=== PATIENT | male | born 1945 | race Caucasian/White ===

== ENCOUNTER 2024-12-11 18:04 | Inpatient (IN) | payer MEDICARE, OTHER, SELFPAY ==
[2024-12-11] VITALS (12 sets, daily range): BP systolic 72–124; BP diastolic 49–70; BMI 20.7
[2024-12-11 16:21] LABS: Hematocrit 45.1 % (39.0-52.0); Hemoglobin 14.7 g/dL (13.0-18.0); Mean Corp Hgb Conc. 32.6 g/dL (33.0-37.0); Mean Corpuscular Volume 85.7 fL (80.0-94.0); Nucleated Red Blood Cells % 0.1 % (-); Platelet Count 240 10^3/uL (130-400); Red Cell Dist. Width 13.7 % (11.5-14.5)
--- NOTE | 2024-12-11 16:30 | ED.GENMED ---
History of Present Illness
General
Chief Complaint: Breathing Problem
Source: patient
Exam Limitations: none
Time Seen by Provider: 12/11/24 16:25
History of Present Illness
History of Present Illness:
See MDM
Past History
Past History
ED Past Medical History: IDDM
ED Past Surgical History: None
Social History
Tobacco: Non-smoker
Alcohol: None
Phy Exam
Physical Exam
Physical Exam:
See MDM
Scores
Heart Failure Risk
Heart Failure Risk Score: Not Applicable
Course
Orders/Labs/Results
Orders:
Orders
12/11/24 16:02
EKG [Electrocardiogram (*1)] Urgent
Reason for Study: Shortness of Breath
12/11/24 16:03
EKG- Treatment ONCE
12/11/24 16:12
B-Hydroxybutyrate Urgent
Comment: ADD ON
Complete Blood Count/With Diff Urgent
Comprehensive Metabolic Panel Urgent
Troponin I Urgent
12/11/24 16:31
0.9% Sodium Chloride 1000 ml [Nss] 1,000 ml IV BOLUS
12/11/24 16:33
Urinalysis Reflex To Culture Urgent
12/11/24 16:46
Add On- LAB Urgent
Tests Added?: B-hydroxybuterate
12/11/24 16:50
Aspirin Chewable [Low Strength Aspirin] 324 mg PO NOW STA
12/11/24 17:03
Bedside Glucose- Treatment Q1H
IV Insert/Care/Rem.- Treatment PRN
Insulin Human Regular [Novolin R] 7 units IV NOW STA
NSS 1000mL Bolus over 1 hr 0.9% Sodium Chloride 1000 ml [Nss] 1,000 ml IV BOLUS
NSS 1000mL Bolus over 1 hr 0.9% Sodium Chloride 1000 ml [Nss] 1,000 ml IV BOLUS
12/11/24 17:15
Basic Metabolic Panel Q2H
12/11/24 19:15
Basic Metabolic Panel Q2H
12/11/24 21:15
Basic Metabolic Panel Q2H
Abnormal Lab Results
12/11/24
16:12
WBC 18.5 H 10^3/uL
(4.8-10.8)
MCHC 32.6 L g/dL
(33.0-37.0)
MPV 12.1 H fL
(7.4-10.4)
Abs Immat Gran (auto) 0.1 H 10^3/uL
(0-0.05)
Absolute Neuts (auto) 13.4 H 10^3/uL
(1.4-6.5)
Absolute Lymphs (auto) 3.9 H 10^3/uL
(1.2-3.4)
Absolute Monos (auto) 0.9 H 10^3/uL
(0.1-0.6)
Immature Gran % 0.6 H %
(0-0.5)
Sodium 126 L mmol/L
(135-145)
Chloride 95 L mmol/L
(98-107)
Carbon Dioxide 21 L mmol/L
(22-30)
BUN 53 H mg/dl
(9-20)
Creatinine 2.8 H mg/dL
(0.7-1.3)
Glucose 986 H* mg/dl
(70-99)
Total Bilirubin 2.7 H mg/dl
(0.2-1.3)
ALT 87 H U/L
(0-50)
Alkaline Phosphatase 148 H U/L
(38-126)
Troponin I 0.058 H* ng/ml
12/11/24 16:12
12/11/24 16:12
Vital Signs
Initial and Last Documented VS:
Initial Vital Signs
Temp Pulse Resp BP
97.6 F 88 20 72/50
12/11/24 15:53 12/11/24 15:53 12/11/24 15:53 12/11/24 15:53
Last Documented Vital Signs
Temp Pulse Resp BP
97.6 F 88 20 72/50
12/11/24 15:53 12/11/24 15:53 12/11/24 15:53 12/11/24 15:53
MDM/Problems Addressed
Differential Diagnosis Includes:
Note:
CHIEF COMPLAINT(S)
Generalized weakness and fatigue.
HISTORY OF PRESENT ILLNESS
The patient is an 79-year-old male with a recent history of pneumonia, which has resolved following treatment. However, the patient continues to experience generalized weakness and fatigue. He has a history of diabetes mellitus and is experiencing
increased urination, likely exacerbated by the recent use of steroids. The patient denies any current shortness of breath. He reports drinking a substantial amount of fluids, possibly due to feeling dehydrated. He also mentioned having a history of
sinus infections and chest infections over the years.
CHRONIC MEDICAL CONDITIONS SIGNIFICANTLY AFFECTING CARE
Chronic conditions affecting care: Diabetes mellitus.
PHYSICAL EXAM
General: Alert, no acute distress.
Skin: Warm, dry.
Head: Normocephalic, atraumatic
Neck: Appears supple, trachea midline.
Eyes, Ears, Nose, Mouth, and Throat: Very dry mucous membranes
Cardiovascular: No signs of cyanosis. Regular rate and rhythm
Respiratory: Respirations are non-labored. Lungs clear
Abdomen: Non-distended
Musculoskeletal: No deformities
Neurological: No focal neurological deficit observed.
Psychiatric: Cooperative, appropriate mood and affect.
PLAN
The plan is to administer intravenous fluids to address the low blood pressure and dehydration.
DIFFERENTIAL DIAGNOSIS
The Differential Diagnosis includes, in no particular order and is not limited to:
- Dehydration
- Hyperglycemia due to uncontrolled diabetes
- Post-treatment fatigue from recent pneumonia
- Electrolyte imbalance
- Anemia
- Cardiovascular deconditioning
- Medication side effects
- Chronic kidney disease
- Adrenal insufficiency
- Infection recurrence
DISPOSITION
Observation with intravenous fluid administration.
MEDICATION RECONCILIATION
- Clopidogrel.
MEDICAL DECISION MAKING
- Complexity of Data Reviewed: Chronic conditions affecting care: Diabetes mellitus. Differential diagnosis includes dehydration, hyperglycemia, post-treatment fatigue, etc.
- Data:
Category 1: No external records reviewed during this encounter.
Category 2: No additional history obtained from external sources.
Category 3: No discussion of management with other providers documented.
-Risk:
Consideration of Admission/Observation: Escalation of care including admission/observation was considered given the complexity and risk of the patients presenting complaint, exam findings, and/or their underlying comorbidities. However, ultimately I
feel the patient is safe for outpatient management with close follow up. Reasoning: Work-up reassuring, does not reveal any acute life/organ threatening processes, patients symptoms well controlled upon reevaluation, reexamination is reassuring,
vitals are stable, patient agreeable with discharge, reliable for follow-up.
DIAGNOSIS
- Generalized weakness (R53.1)
- Dehydration (E86.0)
- hyperglycemia
SUMMARY OF ENCOUNTER
79-year-old male presented for generalized weakness. He had recently completed a course of antibiotics and steroids for pneumonia. The patient denies current respiratory symptoms, and his lung sounds are clear on examination. He is experiencing
profound dehydration and significant hyperglycemia, which is likely steroid-induced. His anion gap is 10.
DISPOSITION
Admit to the hospital service.
ASSESSMENT
The patient has generalized weakness secondary to dehydration and significant hyperglycemia, likely due to recent steroid use.
EMERGENCY TREATMENTS ADMINISTERED
Initiation of intravenous fluids and an insulin drip due to profound hyperglycemia.
PLAN
The patient will be admitted to the hospital service for management of dehydration and steroid-induced hyperglycemia. An insulin drip will be administered, and intravenous fluids will continue.
INDEPENDENT REVIEW OF LABS AND INTERPRETATION OF TESTS
My independent review of the patients labs shows significant hyperglycemia and an anion gap of 10.
MEDICAL DECISION MAKING
1. Number and Complexity of Problems Addressed: Chronic conditions affecting care: Diabetes mellitus. Differential diagnosis includes dehydration, hyperglycemia, post-treatment fatigue, electrolyte imbalance, anemia, cardiovascular deconditioning,
medication side effects, chronic kidney disease, adrenal insufficiency, and infection recurrence.
2. Data:
-Category 1: My independent interpretation of labs revealed significant hyperglycemia and an anion gap of 10.
3. Risk: Admission was chosen due to the complexity and risk of the patients presenting complaints, comorbidities, and requirement for continuous monitoring and treatment adjustments.
DIAGNOSIS
- Generalized weakness (R53.1)
- Dehydration (E86.0)
- hyperglycemia
*Pulse Oximetry
Patient hypoxic: no
*Critical Care Note
Total Time (30-74mins, 75-104mins- exclusive of procedures): 33 min
comment:
The high probability of a clinically significant, sudden or life threatening deterioration of the endocrine/cardiovascular system(s) required my full and direct attention, intervention and personal management. The aggregate critical care time was 33
minutes. This time is in addition to time spent performing reported procedures but includes the following:
[x] Data Review and interpretation
[x] Patient assessment and monitoring of vital signs
[x] Documentation
[x] Medication orders and management
ED Attending Note
-
Portions of this chart may have been created with voice recognition software.� Occasional wrong word or��sound alike� substitutions may have occurred due to the inherent limitations of voice recognition software.
Discharge Plan
Departure
Patient Disposition: Admit
Date of Disposition: 12/11/24
Time of Disposition: 17:02
Admit to: Med/Surg
Presentation/result/management discussed w/ accepting MD/DO: Hospitalist
Discharge Problem:
Acute hyperglycemia, ARSENIO (acute kidney injury)
Referrals:
NONE,* [Family Provider, Internal Medicine]
Interventions
Interventions:
*Risk Screen - Suicide Last Done: 12/11/24 15:53
*General Assessment Last Done: 12/11/24 15:53
*ED COVID-19 Vaccine History Last Done: 12/11/24 15:53
*ED Influenza Vaccine History Last Done: 12/11/24 15:53
Discharge Date and Time
Print Language: SWEDISH
[2024-12-11 16:32] LABS: ALT (SGPT) 87 U/L (0-50); AST (SGOT) 50 U/L (17-59); Albumin 3.8 g/dl (3.5-5.0); Alkaline Phosphatase 148 U/L (38-126); Blood Urea Nitrogen 53 mg/dl (9-20); Calcium 9.6 mg/dl (8.4-10.2); Carbon Dioxide 21 mmol/L (22-30); Chloride 95 mmol/L (98-107); Potassium 3.7 mmol/L (3.5-5.1); Sodium 126 mmol/L (135-145); Total Protein 6.4 g/dl (6.3-8.2); eGFR 22.12
[2024-12-11 16:43] LABS: Glucose 986 mg/dl (70-99)
[2024-12-11 16:44] LABS: Troponin I 0.058 ng/ml
--- NOTE | 2024-12-11 17:03 | HPS.HSE ---
Family Physician
-
Family Physician: * NONE
Chief Complaint
-
fatigue
History of Present Illness
79-year-old male with PMH for neuropathy, type 2 DM, NC presented to us with fatigue and weakness for past few days. Patient stated increased urination. Patient stated very poor appetite. Patient stated for past few days he was just taking
strawberry Jell-O, water and Coke. Patient just finished a course of antibiotics and steroids for pneumonia on Saturday. Patient denied any headache, dizzy or syncope. Patient denied any fever, chills, cough, congestion, chest pain or short of
breath. Patient denied any abdominal pain, nausea, vomiting or diarrhea. Patient denied dysuria hematuria.
Upon arrival he was noted hypotensive for which he was requiring fluids. Patient was also noted to have elevated blood sugar in 900s. He was noted to have elevated Trope. Patient received a dose of normal saline, aspirin and insulin 7 units.
Admitting for further management
Medical History
Past Medical History
Past Medical History: Reports Other
Additional Past Medical History:
Peripheral neuropathy, diabetes, NC
Past Surgical History: Reports Other
Additional Past Surgical History:
Coronary artery bypass graft x 4 vessels, defibrillator
Social History
Tobacco: Non-smoker
Alcohol: None
Drug: None
Personal:
Living: With Family
Family History
Family History: Not pertinent
Allergies / Home Medications
Allergies reflects when Allergies were last updated in [facility].
Home Medications with original date entered in [facility]
Allergy/Medication List:
Allergies
Allergy/AdvReac Type Severity Reaction Status Date / Time
Sulfa (Sulfonamide Allergy rash, Verified 12/11/24 17:30
Antibiotics) fever,
redness
Review of Systems
-
Constitutional: Reports Fatigue
EENT: Reports No Symptoms
Respiratory: Reports No Symptoms
Cardiac: Reports No Symptoms
Abdomen/GI: Reports No Symptoms
: Reports No Symptoms
Musculoskeletal: Reports No Symptoms
Skin: Reports No Symptoms
Neurological: Reports Weakness
Endocrine: Reports No Symptoms
Hematologic/Lymphatic: Reports No Symptoms
Psych: Reports No Symptoms
Physical Exam
Vital Signs
Vital Signs
Temp Pulse Resp BP
97.6 F 88 20 72/50
12/11/24 15:53 12/11/24 15:53 12/11/24 15:53 12/11/24 15:53
Physical Exam
General: Well Developed, Well Nourished and No Apparent Distress
HEENT: NormoCephalic, Moist mucous membranes and Atraumatic
Respiratory: Clear
Cardiac: S1/S2 and Regular Rhythm; No Murmur or Rub
GI: Soft, Non Tender, Non Distended and Normal Bowel Sounds; No Organomegaly
Rectal: Deferred by Provider
Musculoskeletal: No Clubbing, No Cyanosis and No Edema
Skin: No Rash
Neuro: AO x 3 and Nonfocal/grossly intact
Psych: Calm
Laboratory Results
-
12/11/24 16:12
12/11/24 16:12
Laboratory Results
Total Bilirubin 2.7 mg/dl (0.2-1.3) H 12/11/24 16:12
AST 50 U/L (17-59) 12/11/24 16:12
ALT 87 U/L (0-50) H 12/11/24 16:12
Alkaline Phosphatase 148 U/L (38-126) H 12/11/24 16:12
Troponin I 0.058 ng/ml H* 12/11/24 16:12
Data Reviewed
-
Lab Data: Labs Reviewed by me
Impression/Plan
-
#DKA likely from recent steroids
-blood sugar elevated in 900's
-AG 31 with corrected sodium, B hydroxy pending
-insulin drip continued
-DM SITE INTERPRETER consulted
- Hold hold Lantus and glipizide and jardiance
# Leukocytosis likely from steroids
#recent pneumonia
- WBCs 18.5, patient is afebrile
- Continue to monitor
-refused the chest x ray to check the resolution of pneumonia.
# Pseudohyponatremia in setting of hyperglycemia
- Corrected sodium is 147
-fluids continued
-monitor BMP
# Acute kidney injury likely chronic likely hypovolemic
- Creatinine 2.8
-Fluids continued
- Continue to monitor BMP
# Elevated Trope rule out NSTEMI
- Patient denies chest pain
- Trend Trope
- EKG with atrial sensed ventricular paced rhythm
- Cardiology consulted
# Hypovolemic hypotension
Blood pressure low in 70s
-Continue fluids
-Continue to monitor the blood pressure
# Hypothyroidism
-Levothyroxine continued
# History of NC
# Coronary artery disease status post coronary artery bypass graft
# Defibrillator
-Metoprolol, aspirin, Plavix continued
# Essential hypertension
-Patient was noted hypotensive upon arrival
-Will hold valsartan
#Hyperlipidemia
-Atorvastatin continued
# DVT prophylaxis
- Heparin subcu
# CODE STATUS
- Full code
--- NOTE | 2024-12-11 17:08 | W.PN.UPDATE ---
Addendum entered and electronically signed by Yash Russ MD 12/11/24 18:30:
Case : Hospitalist dw DCA Card:
Precipitating etiolgy of DKA is uncertain concern for silent Card event
Current TPNI is insignificant per Card
- thus hold off Card consult for now
- Trend TPNI - if become significant, will consult DCA card
Addendum entered and electronically signed by Yash Russ MD 12/11/24 18:11:
Laboratory Tests
12/11/24
16:12
B-Hydroxybutyrate 1.20 H
consistent with DKA with Hi AG
Original Note:
Update Note
Progress Note Update
This note serves as an addendum to the H&P by rigging engineer OSMANI�
Deonna ALEKSANDR�
HPI
79M Recently Dxed with PNA as of 12/01/24. S/P PO ABx and PO Steroids.
- seen at ER pw weakness and fatigue
- No Pneumonic symptoms
- BP was low in triage
- Report SBP was 70s for weeks
PHX: CAD, AZ, CABG, AICD, IDDM
Relevant VS
Temp Pulse Resp BP
97.6 F 88 20 72/50
12/11/24 15:53 12/11/24 15:53 12/11/24 15:53 12/11/24 15:53
PE
Gen:thin, appropriate
HEENT:anicteric, dry lips and OM
Neck: supple
Lungs: CTA
Cor: RRR S1 S2
Abdomen:�soft NT NG NRT
CATALYTIC CASE OPERATOR: AAO3
MS:no edema
Relevant Data
12/11/24
16:12
WBC 18.5 H
Hgb 14.7
MCV 85.7
Plt Count 240
12/11/24
16:12
Sodium 126 L =140 if corrected Na for BG 986
Potassium 3.7
Chloride 95 L
Carbon Dioxide 21 L
BUN 53 H
Creatinine 2.8 H
eGFR 22.12
Glucose 986 H*
Total Bilirubin 2.7 H
AST 50
ALT 87 H
Alkaline Phosphatase 148 H
Troponin I 0.058 H*
Albumin 3.8
B-Hydroxybutyrate
Calculated Sr Osm 354
Anion Gap 10 if uncorrected Na 126. AG is 24 for corrected Na 140 Pending
EKG:
Atrial-sensed ventricular-paced rhythm with prolonged AV conduction
ABNORMAL ECG
NO PREVIOUS ECGS AVAILABLE
Confirmed by PRATIK VÁSQUEZ MD ([id number]) on 12/11/2024 4:33:44 PM
NO Prior hospitalist admission:
ASSESSMENT & PLAN
Pending Rx reconciliation
Profound hyperglycemia; more likely Hyperosmolar hyperglycemic crisis more than DKA
- AG 10 if uncorrected Na 126 vs. AG 24 for corrected Na 140
- Calculated Sr Osm 35
- Severely vol depleted with hypotension complicated by element of ARSENIO
- HX IDDM on Lantus and SGLT2 ( Jardiance = empagliflozin)
- Pending BHB
- check serum Osm
DM crisis protocol
- IVF: after 2 L NS cont IV 0.45 NS @ 120/ H
- when BG < 250, switch to D5.45 NS
- Insulin gtt ( 0.1U /Kg IV bolus then 0.1 uni/kg/hr infusion
- Hold SGLT2
- FU BMP q2hrs per DM crisis protocol
- DM CELL OPERATOR consult for Insulin management
- ICU consult
Pre renal ARSENIO due to dehydration
Severely vol depleted with hypotension
HX CKD of unknown stage per patient
- Fluid resuscitation
- Trend BMP
- Falls precaution
Elevated TPNI : NIMI due to Renal failure vs NSTEMI vs
HX CAD, AZ, CABG
- Trend TPNI
- CBC card consult
AICD im plant
- AV paced rhythm
Recent PNA
- s/p PO Azithromycin and Medrol dose pack as of Friday 12/08
- FU CXR on this admission
DVT Px: SQH
Full code
ICU
Total Critical Care Time__45___ minutes.
I was immediately available to the patient and staff. I personally examined, reviewed labs, diagnostic images/reports, interpretations, treatment plans, discussed patient care with other providers and family or caregivers (if patient is unable to
make decisions), entered orders as appropriate and documented the medical record.
[2024-12-11] MEDS: NSS 1000 IV ×2 (17:37→17:40)
[2024-12-11 17:40] LABS: Blood Urea Nitrogen 52 mg/dl (9-20); Calcium 9.4 mg/dl (8.4-10.2); Carbon Dioxide 20 mmol/L (22-30); Chloride 95 mmol/L (98-107); Estimated Creatinine Clearance 19 ml/min; Potassium 3.4 mmol/L (3.5-5.1); Sodium 129 mmol/L (135-145); eGFR 22.12
[2024-12-11] MEDS: LOW STRENGTH ASPIRIN 324 MG PO (17:42)
[2024-12-11] MEDS: NOVOLIN R 7 UNITS IV (17:45)
[2024-12-11 17:55] LABS: Glucose 980 mg/dl (70-99)
[2024-12-11 18:17] LABS: Glucose - Point of Care > 600 mg/dl (70-99)
[2024-12-11] MEDS: NOVOLIN R INSULIN INFUSION 100 IV (18:18)
[2024-12-11 19:21] LABS: Glucose - Point of Care > 600 mg/dl (70-99)
[2024-12-11] MEDS: NSS 500 IV ×3 (19:28→23:44)
[2024-12-11] MEDS: KCL 260 MEQ IV ×2 (19:30→22:57)
[2024-12-11 19:40] LABS: INR 1.17; PT 15.2 Sec (11.4-14.6)
[2024-12-11 19:41] LABS: APTT 23.2 Sec (23.4-35.0)
--- NOTE | 2024-12-11 19:58 | PTCARENOTE ---
Addendum entered by Gt Singh RN 12/11/24 20:11:
BMP resulted, ICU OSMANI notified of results, orders to hold Insulin gtt, let Betito morrow finish, check another bmp.
Original Note:
Rec'd pt. from ED approx 1900.
Per Clinical pharmacy/ICU OSMANI --> hold insulin gtt, send BMP, start 0.9 150 ml/hr, rplt K 20 meq IVPB, restart insulin gtt at 6 per hour. Follow protocol once bmp results.
Pt. adamantly refusing CXR despite multiple attempts of education, ICU OSMANI notified of pt refusal.
Family bedside all questions answered at this time. Plan of care explained extensively.
See Assessment/Titration flow sheets for further details.
[2024-12-11 20:00] LABS: Blood Urea Nitrogen 51 mg/dl (9-20); Calcium 8.6 mg/dl (8.4-10.2); Carbon Dioxide 21 mmol/L (22-30); Chloride 103 mmol/L (98-107); Estimated Creatinine Clearance 21 ml/min; Potassium 2.9 mmol/L (3.5-5.1); Sodium 133 mmol/L (135-145); eGFR 24.17
[2024-12-11 20:14] LABS: Troponin I 0.054 ng/ml
[2024-12-11 20:24] LABS: Glucose 701 mg/dl (70-99)
[2024-12-11] MEDS: HEPARIN 5000 UNITS SC (21:24)
[2024-12-11 22:01] LABS: Blood Urea Nitrogen 50 mg/dl (9-20); Calcium 8.6 mg/dl (8.4-10.2); Carbon Dioxide 21 mmol/L (22-30); Chloride 106 mmol/L (98-107); Estimated Creatinine Clearance 22 ml/min; Glucose 505 mg/dl (70-99); Potassium 3.2 mmol/L (3.5-5.1); Sodium 136 mmol/L (135-145); eGFR 25.34
[2024-12-11 22:16] LABS: Troponin I 0.054 ng/ml
[2024-12-12] VITALS (20 sets, daily range): BP systolic 95–127; BP diastolic 59–79; PULSE 75; BMI 20.6
--- NOTE | 2024-12-12 | PTCARENOTE ---
Received report on pt at this time, labs drawn, insulin gtt remains off until WOMEN'S BASKETBALL COACH reviews labs, pt aaox3, denies pain and SOB at this time, AV paved on the monitor, RA, diabetic diet, ambulates to BR, call salomon in reach
[2024-12-12 01:59] LABS: Blood Urea Nitrogen 47 mg/dl (9-20); Calcium 8.5 mg/dl (8.4-10.2); Carbon Dioxide 22 mmol/L (22-30); Chloride 112 mmol/L (98-107); Estimated Creatinine Clearance 23 ml/min; Glucose 362 mg/dl (70-99); Potassium 3.8 mmol/L (3.5-5.1); Sodium 141 mmol/L (135-145); eGFR 26.61
[2024-12-12] MEDS: 0.45% NACL with KCL 20 MEQ 1000 IV (02:14)
[2024-12-12 03:14] LABS: Urine Character Clear (Clear)
[2024-12-12 03:19] LABS: Glucose - Point of Care 326 mg/dl (70-99)
[2024-12-12 03:27] LABS: Urine Red Blood Cell 0-2 /HPF (0-2); Urine Squamous Cell 0-2 /LPF (Few); Urine White Cell 0-2 /HPF (0-5)
--- NOTE | 2024-12-12 04:00 | PTCARENOTE ---
Insulin restarted at 2 per WET CLEANER MACHINE than to follow protocol there after, IVF changed see MAR, call salomon in reach, no complaints at this time
[2024-12-12 04:18] LABS: Glucose - Point of Care 294 mg/dl (70-99)
[2024-12-12 04:39] LABS: Hematocrit 38.3 % (39.0-52.0); Hemoglobin 12.8 g/dL (13.0-18.0); Mean Corp Hgb Conc. 33.4 g/dL (33.0-37.0); Mean Corpuscular Volume 84.5 fL (80.0-94.0); Platelet Count 207 10^3/uL (130-400); Red Cell Dist. Width 13.3 % (11.5-14.5)
[2024-12-12 05:00] LABS: Blood Urea Nitrogen 45 mg/dl (9-20); Calcium 8.9 mg/dl (8.4-10.2); Carbon Dioxide 20 mmol/L (22-30); Chloride 113 mmol/L (98-107); Estimated Creatinine Clearance 23 ml/min; Glucose 282 mg/dl (70-99); Potassium 3.5 mmol/L (3.5-5.1); Sodium 142 mmol/L (135-145); eGFR 26.61
[2024-12-12] MEDS: SYNTHROID 75 MCG PO (05:18)
[2024-12-12 05:30] LABS: Glucose - Point of Care 215 mg/dl (70-99)
[2024-12-12] MEDS: D5/0.45%NSS with KCL 20 MEQ 1000 IV (05:51)
[2024-12-12 06:49] LABS: Glucose - Point of Care 165 mg/dl (70-99)
[2024-12-12 07:48] LABS: Glucose - Point of Care 185 mg/dl (70-99)
[2024-12-12] MEDS: CRESTOR 40 MG PO (08:12)
[2024-12-12] MEDS: TOPROL XL 50 MG PO (08:12)
[2024-12-12] MEDS: PLAVIX 75 MG PO (08:12)
[2024-12-12] MEDS: LOW STRENGTH ASPIRIN 81 MG PO (08:13)
[2024-12-12] MEDS: HEPARIN 5000 UNITS SC ×2 (08:13→21:38)
--- NOTE | 2024-12-12 08:18 | CON.INTV ---
Consultation
Consultation Request
Date/Time Consultation Requested: 12/11/20241750
Date/Time Consultation Performed: 12/12/2024817
Requesting Provider: GILDA Gamez
Performing Provider: Dr. Caballero
Reason for Consultation: HHNK
Medical History
-
Chief Complaint: Excessive fatigue
History of Present Illness:
79-year-old male with a past medical history of CAD with history of MA, s/p CABG x 4, history of defibrillator placement, DM type II c/b peripheral neuropathy who presents for increased fatigue + weakness for few weeks. He says he was recently
diagnosed with [facility] on 12/[facility] prescribed an antibiotic and steroids but he continues to feel weak. He has been urinating more, has had a poor appetite, and for the last few days been eating strawberry Jell-O, water and
Coca-Cola. He has had no abdominal pain, nausea, vomiting or diarrhea. Initially in the ER he was afebrile to 97.6 �F, pulse rate 88, respiratory rate 20, BP low at 72/50 and he was saturating 99% on room air. Initial labs pertinent for
leukocytosis to 18.5, potassium 2.9, sodium 133, serum bicarbonate level 21, creatinine 2.6, initial glucose 701, serum osmolarity 350, T. bili 2.7, ALT 87, ALP 148, troponin 0.054, urinalysis with no ketones and plus for glucose, and
beta-hydroxybutyrate 1.2. He was given 2 L of IVF with NS 0.9%, followed by 7 units regular insulin and 324 mg of aspirin. He was then started on insulin drip and admitted to the ICU. Amusement Machine Mechanic service consulted for additional
management/recommendations.
Patient was seen and evaluated this morning. Currently on room air breathing comfortably, BP 104/60 and heart rate 60. He currently feels well, just tired. Denies HERNANDEZ, cough, SOB, chest pain, abdominal pain, nausea, fevers or chills.
PMHx: History of MA, DM type II c/b peripheral neuropathy, CAD
PSHx: CABG x 4, defibrillator placement
Past Medical History
Past Medical History: Other (Above as per HPI)
Past Surgical History: Other (Above as per HPI)
Social History
Tobacco: Non-smoker
Alcohol: None
Drug: None
Personal:
Living: With Family
Family History
Family History: Reviewed & Not Pertinent
Allergies / Home Medications
Allergies
Allergy/AdvReac Type Severity Reaction Status Date / Time
Sulfa (Sulfonamide Allergy rash, Verified 12/11/24 17:30
Antibiotics) fever,
redness
Home Medications
�Medication �Instructions �Recorded �Confirmed �Last Taken �Type
clopidogrel 75 mg tablet 75 mg PO DAILY Blood Clot 12/11/24 12/11/24 Unknown History
Prevention/Tx
empagliflozin 10 mg tablet 10 mg PO DAILY Diabetes 12/11/24 12/11/24 Unknown History
(Jardiance)
glipizide 5 mg tablet, extended 5 mg PO DAILY Diabetes 12/11/24 12/11/24 Unknown History
release 24 hr
insulin glargine 100 unit/mL (3 26 unit SC DAILY Diabetes 12/11/24 12/11/24 Unknown History
mL) subcutaneous pen (Lantus
Solostar U-100 Insulin)
levothyroxine 75 mcg tablet 75 mcg PO DAILY Thyroid 12/11/24 12/11/24 Unknown History
metoprolol succinate 50 mg 50 mg PO DAILY Blood Pressure 12/11/24 12/11/24 Unknown History
tablet,extended release 24 hr
rosuvastatin 40 mg tablet 40 mg PO DAILY High Cholesterol 12/11/24 12/11/24 Unknown History
valsartan 80 1 tab PO DAILY Blood Pressure 12/11/24 12/11/24 Unknown History
mg-hydrochlorothiazide 12.5 mg
tablet
Review of Systems
-
History Source: Patient
All other systems: Negative unless noted
Vitals / Labs / Diagnostic Testing
Vital Signs
Temp Pulse Resp BP Pulse Ox
96.5 F L 84 26 95/64 73
12/12/24 11:03 12/12/24 10:45 12/12/24 10:45 12/12/24 10:00 12/12/24 10:30
Lab Data
12/12/24 04:19
12/12/24 08:46
Laboratory Results
12/11/24
19:20
PT 15.2 H
INR 1.17
APTT 23.2 L
Diagnostic Testing:
Physical Exam
-
HEENT: Normocephalic and Anicteric
Cardiovascular: Rub (negative), Peripheral Edema (negative) and Other (A-V-paced, normal heart rate)
Respiratory: Clear, Wheeze (negative), Rales (negative), Rhonchi (negative) and Non-Labored Respirations
GI: Soft, Non Distended, Non Tender and Normal Bowel Sounds
Neurology: Tremors (negative) and Other (Sleepy but easily arousable to voice and is following all commands, answering questions appropriately)
Skin: Warm and Dry
General: Respiratory Distress (negative), Comfortable, Fever (negative) and Chills (negative)
Assessment
-
Assessment: 79-year-old male with a past medical history of CAD with history of MA, s/p CABG x 4, history of defibrillator placement, DM type II c/b peripheral neuropathy who presents for increased fatigue + weakness for few weeks. He says he was
recently diagnosed with pneumonia [facility] 12/[facility], prescribed an antibiotic and steroids but he continues to feel weak. He has been urinating more, has had a poor appetite, and for the last few days been eating strawberry Jell-O,
water and Coca-Cola. He has had no abdominal pain, nausea, vomiting or diarrhea. Initially in the ER he was afebrile to 97.6 �F, pulse rate 88, respiratory rate 20, BP low at 72/50 and he was saturating 99% on room air. Initial labs pertinent for
leukocytosis to 18.5, potassium 2.9, sodium 133, serum bicarbonate level 21, creatinine 2.6, initial glucose 701, serum osmolarity 350, T. bili 2.7, ALT 87, ALP 148, troponin 0.054, urinalysis with no ketones and plus for glucose, and
beta-hydroxybutyrate 1.2. He was given 2 L of IVF with NS 0.9%, followed by 7 units regular insulin and 324 mg of aspirin. He was then started on insulin drip and admitted to the ICU. Amusement Machine Mechanic service consulted for additional
management/recommendations.
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
Impression:
#DM type II (uncontrolled with A1c 19.1 on 12/12/2024) complicated by hyperglycemic hyperosmolar nonketotic syndrome
#Leukocytosis likely due to stress response in setting of above
#Recent pneumonia s/p course of antibiotics + steroids finished about 1.5 weeks FIBER MACHINE TENDER
#Acute anemia
#ARSENIO (unknown creatinine baseline sodium could also have CKD)
#Nonanion gap metabolic acidosis (initially due to his ARSENIO)
#Transaminitis with hyperbilirubinemia
#Elevated troponin likely due to demand ischemia with type II MA
#CAD s/p CABG x 4; history of MA
Plan:
- Continue insulin drip until glucose is <180 for at least 3-4 hours and then we will wean off by transitioning to lantus
- Avoid hypoglycemia while on insulin drip
- Continue with dextrose containing- 1/2NS +KCl fluids while on insulin gtt
- Diabetic TELESALES SPECIALIST should be consulted
- He needs to be seen by endocrinology, not necessarily as an inpatient but definitely once he is discharged
- Once off insulin gtt, then start ISS + basal insulin with lantus HS
- He has received approximately 27 units of IV insulin since the insulin drip has been started
- Trend WBC and monitor off antibiotics
- Monitor temperature curve
- Trend serum creatinine, trend UOP and I/O
- His serum bicarbonate level has improved and is now 22 as of this morning
- Avoid nephrotoxic agents if possible
- Maintain SpO2 >90-94%, using supplemental oxygen if needed
- Maintain MAP>65
- Trend LFTs
- If LFTs remain elevated, then would check RUQ ultrasound
- Replete electrolytes with K>4, Mg>2
- Maintain euglycemia with goal BG >100 and <180; HbA1c 19.1 on 12/12/2024
- Trend H/H and transfuse if needed to keep Hb>7g/dL; keep plt>20k, unless there is concern for bleeding then keep plt>50k
- prn nebulized bronchodilators - not currently bronchospastic
- Incentive spirometer encouraged 10x per hour for at least 4 hrs a day
- DVT ppx: HSQ
Patient is now being weaned off insulin drip. Stable for downgrade out of ICU to telemetry. No additional recommendations at this time. Amusement Machine Mechanic/Pulmonary service will now sign off. Thank you for allowing us to be involved in the care of this
patient. Please reconsult if there are any additional questions/concerns, or if patient's respiratory status deteriorates.
Total time spent today was 81 minutes for this encounter. Time includes reviewing laboratory test/imaging results, reviewing pertinent medical records, obtaining and reviewing medical history, performing an appropriate exam, ordering medications,
tests and procedures. Time also includes documentation of this encounter, coordinating patient care and communicating with other healthcare professionals. Total time does not include separately billed tests performed on this date of service.
--- NOTE | 2024-12-12 08:40 | W.PN.UPDATE ---
Update Note
Progress Note Update
Seen and examined the patient with the resident. Agree with plan of care. See changes in my documentation
79 year-old male with fatigue for the past few days. Also had increased urination. Patient just finished a course of antibiotics and steroids for pneumonia
EKG-paced rhythm
CVS: S1-S2 normal
Chest: CTA B/L
Abdomen: Soft, NT , Bowel sounds present
Extremities: No edema
# DKA
Recently used steroids could have precipitated
Hemoglobin A1c indicates poorly controlled diabetes as outpatient
Type 2 diabetes-hemoglobin A1c-19.1
Upon arrival blood sugar was in 900s with anion gap of 31, beta hydroxybutyrate 1.2
Anion gap closed
Transition to Lantus insulin at night. NPH insulin 12 U now
Hold off on glipizide secondary to renal failure now
Patient uses Lantus 24 units, glipizide 5 mg daily and Mounjaro 10 mg on Sundays
( Not on Jardiance now -but that is on the med list)
# Hypotension secondary to hypovolemia-continue IV fluids
# Leukocytosis
Likely secondary to recent use of steroids and hemoconcentration
Trending down
Patient refused repeat chest x-ray upon admission.
# Hypokalemia- replace
# Pseudohyponatremia likely secondary to hyperglycemia- better
# Acute kidney injury with creatinine 2.8 on admission
Pt endorses CKD- He is not sure of his Creat
Unknown baseline creatinine
Continue IV fluids and follow BMP
Bladder scan
# Mildly elevated troponin
Possibly secondary to stress from DKA and nonischemic myocardial injury, renal failure
History of coronary disease with history of CABG at [facility] in 2005
[place] in 2023 treated inn [place]
Continue aspirin, Plavix, statin, metoprolol. Hold valsartan
# Chronic HFrEF with history of AICD/pacer placed 2023
Hold valsartan secondary to elevated creatinine
Continue BB
# Hypothyroidism-continue levothyroxine
# Hypertension-hold valsartan secondary to hypotension and acute kidney injury, continue metoprolol
# Hyperlipidemia-continue atorvastatin
# History of gout
# DVT prophylaxis-subcutaneous heparin
# Full code
Discussed with nursing at bedside
Time spent more than 50 minutes
Discussed with cardiology
Outpatient records requested
Part of this note was created using voice recognition system. Occasional wrong word or��sound alike� substitutions may have inadvertently occurred due to the inherent limitations of voice recognition software. If noted kindly bring it to my
attention for correction.
[2024-12-12 08:59] LABS: Glucose - Point of Care 136 mg/dl (70-99)
--- NOTE | 2024-12-12 09:16 | PTCARENOTE ---
Received report on pt at this time, labs drawn, insulin gtt continues as well as D5 1/2NS with 20KCL, pt aaox3, denies pain and SOB at this time, A/AV paced on the monitor, RA, diabetic diet, ambulates to BR, Frequency noted, call salomon in reach
[2024-12-12 09:25] LABS: Blood Urea Nitrogen 43 mg/dl (9-20); Calcium 8.7 mg/dl (8.4-10.2); Carbon Dioxide 22 mmol/L (22-30); Chloride 113 mmol/L (98-107); Estimated Creatinine Clearance 24 ml/min; Glucose 139 mg/dl (70-99); Potassium 3.2 mmol/L (3.5-5.1); Sodium 142 mmol/L (135-145); eGFR 28.00
[2024-12-12 09:40] LABS: Glycohemoglobin (HgbA1c) 19.1 % (4.0-5.9)
[2024-12-12 10:00] LABS: Glucose - Point of Care 172 mg/dl (70-99)
[2024-12-12] MEDS: KCL 40 MEQ PO (10:03)
[2024-12-12] MEDS: NOVOLIN N vial 0.12 UNITS SC (10:03)
[2024-12-12 10:22] LABS: Magnesium 2.4 mg/dl (1.6-2.3)
[2024-12-12] MEDS: HUMULIN N KWIKPEN 12 UNITS SC (11:00)
--- NOTE | 2024-12-12 11:04 | PTCARENOTE ---
Frequent urination of small amount noted in urinal. Bladder scan post void 698cc. Dr. Leblanc notified. Pt assisted to bathroom and voided 350cc.
--- NOTE | 2024-12-12 11:39 | W.PN.HOSP.TC ---
Today's Communication/Plan
-
Insulin drip to subcu insulin
Diabetic diet
Records request
Assessment / Plan
Assessment / Plan
#DKA
less likely HHS due to blood ketones, elevated anion gap, uncontrolled diabetes
likely from recent steroids/ illness
finished course about 1.5 weeks ago due to pneumonia diagnosed at urgent care
A1c 19.1
B hydroxy 1.2
negative urine ketones
blood sugar elevated in 900's
AG 31 with corrected sodium, B hydroxy
-AG closed x 2
-DM SEAMING INSPECTOR consulted
- Hold glipizide and jardiance
-transition insulin drip to subcu
- Lantus 24 units
- NPH 12 units
-Moderate insulin sliding scale
- Afternoon BMP check
# Leukocytosis likely from steroids
#recent pneumonia
- WBCs 18.5, patient is afebrile
- Continue to monitor
- refused the chest x ray to check the resolution of pneumonia
# Pseudohyponatremia in setting of hyperglycemia
- Corrected sodium is 143
-fluids continued
-monitor BMP
# Acute kidney injury
unknown baseline, CKD?
no OP first breaker feeder
likely chronic likely hypovolemic
- Creatinine 2.3 today
- Continue to monitor BMP
- Records request
# Elevated Trope rule out NSTEMI
- Patient denies chest pain
- Trend Trop
- EKG with atrial sensed ventricular paced rhythm
- Cardiology consulted
- Troponin essentially flat no need to continue
- No history of chest pain concerning for ACS
# Hypovolemic hypotension
Blood pressure low in 70s
-Continue fluids
-Continue to monitor the blood pressure
# Hypothyroidism
-Levothyroxine continued
# History of NC x 2
#CAD s/p CABG
# Coronary artery disease status post coronary artery bypass graft
# S/p ICD
-Metoprolol, aspirin, Plavix continued
- Cardiology consult
# Essential hypertension
-Patient was noted hypotensive upon arrival
-Will hold valsartan
#Hyperlipidemia
-Atorvastatin continued
DVT prophylaxis
Heparin subcu
CODE STATUS
Full code
Anticipated Discharge: 24 - 48 hours
Subjective/Interval History
-
Patient was seen at bedside, reports doing better. Reports no fevers chills chest pain nausea or vomiting. Date of Service: December 12, 2024
Objective Data
-
Labs:
Laboratory Results
12/12/24 12/12/24 12/12/24
01:18 04:19 08:46
WBC 13.6 H
Hgb 12.8 L
Hct 38.3 L
Plt Count 207
Sodium 141 142 142
Potassium 3.8 3.5 3.2 L
Chloride 112 H 113 H 113 H
Carbon Dioxide 22 20 L 22
BUN 47 H 45 H 43 H
Creatinine 2.4 H 2.4 H 2.3 H
Glucose 362 H 282 H 139 H
Calcium 8.5 8.9 8.7
Vital Signs:
Vital Signs
Temp Pulse Resp BP Pulse Ox
96.5 F L 84 26 95/64 73
12/12/24 11:03 12/12/24 10:45 12/12/24 10:45 12/12/24 10:00 12/12/24 10:30
I&O
12/11/24 12/12/24 12/13/24
06:59 06:59 06:59
Intake Total 1894 634 / 634
Output Total 400 / 400 450 / 450
Balance 1495 / 1622 184 / 184
Review of Systems
-
History Source: Patient
Constitutional: Denies Fever or Chills
EENT: Denies Sore Throat or Runny Nose
Respiratory: Denies Cough or Trouble Breathing
Cardiac: Denies Chest Pain or Palpitations
Abdomen/GI: Denies Abdominal Pain, Nausea, Vomiting, Diarrhea or Constipated
Genitourinary: Denies Dysuria
Skin: Denies Itching or Rash
Neuro: Denies Dizzy or Headache
Endocrine: Reports Polyuria
Physical Exam
-
General: Well Developed, Well Nourished, No Apparent Distress and Comfortable; Negative Fever
HEENT: Normocephalic and Atraumatic
Respiratory: Clear to Auscultation; Negative Wheezes or Crackles
Cardiac: Regular Rhythm and S1/S2; Negative Murmur
GI: Soft, Nontender, Nondistended and Normal Bowel Sounds
Skin: Warm and Dry; Negative Rash
Neuro: Awake and Alert
--- NOTE | 2024-12-12 12:27 | PTCARENOTE ---
NPH given. Insulin gtt and IVF stopped 2H after at 1200 as ordered.
--- NOTE | 2024-12-12 12:39 | CON.CAR ---
Consultation
Consultation Request
Date/Time Consultation Requested: December 12, 2024 8 AM
Date/Time Consultation Performed: December 12, 2024 12:30 PM
Requesting Provider: Hospitalist
Performing Provider: Aramis Brown
Reason for Consultation: Elevated troponin
Medical History
-
Chief Complaint: Fatigue
History of Present Illness:
79-year-old male past medical history of type 2 diabetes, CAD status post CABG over 2 decades ago and ID last year, ICD/pacemaker, dyslipidemia, who is here for fatigue. He tells me that over the last several months he has had pneumonia twice. The
second time he had pneumonia and he was prescribed antibiotics and steroids. His glucoses then became [id number] with reportedly measurements in the 900s. This caused him to be significantly fatigued as well as having increased urination and
decreased p.o. appetite. For this reason he was then sent to the emergency room. In the emergency room he was found to have significantly elevated blood sugars and a troponin was drawn. This then was elevated.
Past Medical History
Past Medical History: Other (Dyslipidemia, CAD status post CABG and stenting, ICD/pacemaker, type 2 diabetes, hypertension,)
Past Surgical History: Cardiac
Social History
Tobacco: Non-Smoker
Alcohol: None
Drug: None
Personal:
Living: With Family
Employment: Employed
Family History
Family History: Reviewed & Not Pertinent
Allergies / Home Medications
Allergy/AdvReac Type Severity Reaction Status Date / Time
Sulfa (Sulfonamide Allergy rash, Verified 12/11/24 17:30
Antibiotics) fever,
redness
�Medication �Instructions �Recorded �Confirmed �Type
clopidogrel 75 mg tablet 75 mg PO DAILY Blood Clot 12/11/24 12/11/24 History
Prevention/Tx
empagliflozin 10 mg tablet 10 mg PO DAILY Diabetes 12/11/24 12/11/24 History
(Jardiance)
glipizide 5 mg tablet, extended 5 mg PO DAILY Diabetes 12/11/24 12/11/24 History
release 24 hr
insulin glargine 100 unit/mL (3 26 unit SC DAILY Diabetes 12/11/24 12/11/24 History
mL) subcutaneous pen (Lantus
Solostar U-100 Insulin)
levothyroxine 75 mcg tablet 75 mcg PO DAILY Thyroid 12/11/24 12/11/24 History
metoprolol succinate 50 mg 50 mg PO DAILY Blood Pressure 12/11/24 12/11/24 History
tablet,extended release 24 hr
rosuvastatin 40 mg tablet 40 mg PO DAILY High Cholesterol 12/11/24 12/11/24 History
valsartan 80 1 tab PO DAILY Blood Pressure 12/11/24 12/11/24 History
mg-hydrochlorothiazide 12.5 mg
tablet
Review of Systems
-
All other systems: Negative unless noted
Physical Exam
Vital Signs
Temp Pulse Resp BP Pulse Ox
96.5 F L 61 18 104/60 73
12/12/24 11:03 12/12/24 12:15 12/12/24 12:15 12/12/24 12:00 12/12/24 10:30
Lab Results
12/12/24 04:19
12/12/24 08:46
Troponin I Cancelled 12/11/24 22:52
Physical Exam
General: Well Developed, Well Nourished and No Apparent Distress
HEENT: Normocephalic
Respiratory: Clear and Non Labored Respirations
Cardiac: S1/S2 and Regular Rhythm
GI: Soft
Musculoskeletal: No Edema
Skin: Warm and Dry
Neuro: AO x 3
Psych: Calm
Impression / Plan
-
A/P: 79-year-old male with past medical history of CAD status post CABG and stenting, type 2 diabetes, hypertension, hyperlipidemia, hypothyroidism who is here for fatigue and decreased appetite who was found to have DKA/HHNK. Overall, his elevated
troponin is likely secondary to DKA/HHNK. He has no symptoms concerning for ACS and he tells me he has never been told he has heart failure; thus, ACS is highly unlikely with flat troponins.
CAD status post CABG and stenting
- Continue clopidogrel
- Troponin essentially flat no need to continue
- No history of chest pain concerning for ACS
- Continue statin
DKA/HHNK
- Per primary
ICD/pacemaker
- Patient has not been told he has heart failure update echo on Saturday
ARSENIO on CKD
- Unclear baseline
Hypertension
- Resume antihypertensives as able
Dyslipidemia
- Continue statin
Hypothyroidism
We will sign off he has an appointment with his primary cork molder in about 2 weeks.
Data Reviewed
-
EKG: Tracing Personally Visualized and interpreted
Radiology: Report Reviewed by me
Labs: Labs Reviewed by me
[2024-12-12 15:13] LABS: TSH 0.64 uIU/ml (0.47-4.68)
[2024-12-12 15:41] LABS: Blood Urea Nitrogen 41 mg/dl (9-20); Calcium 8.9 mg/dl (8.4-10.2); Carbon Dioxide 23 mmol/L (22-30); Chloride 113 mmol/L (98-107); Estimated Creatinine Clearance 26 ml/min; Glucose 189 mg/dl (70-99); Potassium 3.8 mmol/L (3.5-5.1); Sodium 137 mmol/L (135-145); eGFR 31.23
--- NOTE | 2024-12-12 15:43 | CM ---
MEt patient, is , friend and 's brother in room. Patient was independent in home and community. He and live in 2 level home with 4 steps to enter. THere is powder room on entry level software developer. UP full flight of steps to full bathroom and
bedroom. He does not use or own any DME. No history of SNF ro VNA.
He has not seen PCP in years but it is Dr. Ezequiel Ahn in [place] on [facility].
He gets meds from endocrinology and cardiology.
PLAN: home no needs
[2024-12-12] MEDS: NOVOLOG FLEXPEN-MODERATE RESISTANCE 1 UNITS SC (16:41)
[2024-12-12 16:56] LABS: Glucose - Point of Care 180 mg/dl (70-99)
--- NOTE | 2024-12-12 17:47 | PTCARENOTE ---
Pt refusing to use hat to catch urine. States he in emptying bladder. Refusing diagnostic cardiac sonographer-able to convince to try tele pack.
[2024-12-12] MEDS: LANTUS 0.24 UNITS SC (21:38)
[2024-12-12 21:39] LABS: Glucose - Point of Care 319 mg/dl (70-99)
[2024-12-12] MEDS: NOVOLOG FLEXPEN 5 UNITS SC (22:13)
[2024-12-13] VITALS (9 sets, daily range): BP systolic 92–121; BP diastolic 60–82; BMI 20.6
[2024-12-13 04:29] LABS: Hematocrit 37.7 % (39.0-52.0); Hemoglobin 13.1 g/dL (13.0-18.0); Mean Corp Hgb Conc. 34.7 g/dL (33.0-37.0); Mean Corpuscular Volume 82.9 fL (80.0-94.0); Platelet Count 179 10^3/uL (130-400); Red Cell Dist. Width 13.4 % (11.5-14.5)
[2024-12-13 05:00] LABS: ALT (SGPT) 94 U/L (0-50); AST (SGOT) 89 U/L (17-59); Albumin 2.9 g/dl (3.5-5.0); Alkaline Phosphatase 118 U/L (38-126); Blood Urea Nitrogen 42 mg/dl (9-20); Calcium 8.5 mg/dl (8.4-10.2); Carbon Dioxide 22 mmol/L (22-30); Chloride 116 mmol/L (98-107); Estimated Creatinine Clearance 26 ml/min; Glucose 226 mg/dl (70-99); Magnesium 2.3 mg/dl (1.6-2.3); Potassium 4.1 mmol/L (3.5-5.1); Sodium 142 mmol/L (135-145); Total Protein 5.5 g/dl (6.3-8.2); eGFR 31.23
[2024-12-13] MEDS: SYNTHROID 75 MCG PO (06:12)
--- NOTE | 2024-12-13 07:00 | PTCARENOTE ---
Received patient in sleep, Arousable to voice, A&Ox4, denied pain, on RA, AV paced, BP WNL, GI/ continent.
[2024-12-13] MEDS: PLAVIX 75 MG PO (08:14)
[2024-12-13] MEDS: TOPROL XL 50 MG PO (08:14)
[2024-12-13] MEDS: CRESTOR 40 MG PO (08:15)
[2024-12-13] MEDS: NOVOLOG FLEXPEN-MODERATE RESISTANCE 1 UNITS SC (08:16)
[2024-12-13] MEDS: LOW STRENGTH ASPIRIN 81 MG PO (08:16)
[2024-12-13] MEDS: HEPARIN 5000 UNITS SC ×2 (08:16→21:39)
[2024-12-13 08:17] LABS: Glucose - Point of Care 190 mg/dl (70-99)
--- NOTE | 2024-12-13 10:53 | W.PN.HOSP.TC ---
Addendum entered and electronically signed by Bay Wyatt MD 12/13/24 18:37:
Seen and examined the patient with the resident. Agree with the plan set forth by the resident. Please see changes in my documentation.
79M diabetic neuropathy, type 2 DM uncontrolled, VT x 2 s/p ICD, CABG, hypothyroidism dyslipidemia here for DKA treated with insulin gtt, transitioned to subq and downgraded to Tele. Patient also represents with Cr elevation, unclear hx CKD.
Physical Exam
General: no acute distress, appears comfortable at this time.
HEENT: Normocephalic and Atraumatic
Respiratory: Clear to Auscultation and Non Labored Respirations; Negative Wheezes or Crackles
Cardiac: Regular Rhythm and S1/S2; Negative Murmur
GI: Soft, Nontender, Nondistended and Normal Bowel Sounds
Musculoskeletal: No Clubbing and No Edema
Skin: Warm and Dry
Neuro: AOx3 conversant coherent
Psych: Calm
# DKA
# Leukocytosis
# recent pneumonia
# Pseudohyponatremia in setting of hyperglycemia, resolved
# Mild Transaminitis
# Acute kidney injury vs CKD
# Non-ischemic myocardial injurym troponin trended down
# Hypovolemic hypotension, resolved
# Hypothyroidism
# History of VT x 2
#CAD s/p CABG
# Coronary artery disease status post coronary artery bypass graft
# S/p ICD
# Essential hypertension
# Hyperlipidemia
Stable for downgrade to Tele
Cont glycemic control
monitor renal function, possible outpt Nephro follow up if remain stable
consider resuming glipizide at reduced renal dose
Could consider resuming home Jardiance if eGFR remains >20
PT
I spent a total of 40 minutes with the patient or on the floor. More than 50% of this time involved counseling and coordination of care.
Original Note:
Today's Communication/Plan
-
Downgrade to telemetry
Stable creatinine
Awaiting records
Assessment / Plan
Assessment / Plan
79-year-old male with PMH for diabetic neuropathy, type 2 DM uncontrolled, VT x 2 s/p ICD, CABG, hypothyroidism dyslipidemia presented to us with fatigue and weakness for past few days. Patient stated increased urination. Patient stated very poor
appetite. Patient just finished a course of antibiotics and steroids for pneumonia on 12/01. Upon arrival he was noted hypotensive for which he was requiring fluids. Patient was also noted to have elevated blood sugar in 900s with high anion gap
acidosis and negative urine ketones with positive beta hydroxybutyrate. He was noted to have elevated Troponin with benign EKG. Patient received a dose of normal saline, aspirin and insulin and admitted to the ICU. He was started on an insulin
drip and his BMP was monitored until AG closed x 2. He was transitioned to subcu insulin and a diabetic LEAD ENTERPRISE ARCHITECT was consulted for further management. Cardiology was consulted for his elevated troponin who were not concerned about ACS considering flat
troponin and EKG findings but got echo. Patient was also found to have high creatinine, unknown history of CKD, patient was told by coordinator of library services that he has kidney problem but follows with no document review specialist. Creatinine stabilized during hospital
stay at 2.1. On 12/13 patient was downgraded to telemetry.
#DKA
less likely HHS due to blood ketones, elevated anion gap, uncontrolled diabetes
likely from recent steroids/ illness
finished course about 1.5 weeks ago due to pneumonia diagnosed at urgent care
A1c 19.1
B hydroxy 1.2
negative urine ketones
blood sugar elevated in 900's
AG 31 with corrected sodium, B hydroxy
AG closed x [address] Rosangela Veras at [facility] endocrinology
Dr. Jada Hess at [facility] registered phlebotomist part time
Downgraded telemetry
-DM LEAD ENTERPRISE ARCHITECT consulted
- Lantus 24 units
- NPH 12 units
-Moderate insulin sliding scale
- Afternoon BMP within normal limits
# Leukocytosis
#recent pneumonia
Steroid-induced versus DKA/
- WBCs 11, patient is afebrile, downtrending
- Continue to monitor
- refused the chest x ray to check the resolution of pneumonia
# Pseudohyponatremia in setting of hyperglycemia, resolved
- Corrected sodium is 142
-fluids continued
-monitor BMP
#Transaminitis
AST 89
ALT 94
T. bili 1.3
Alk phos 118
Likely in the setting of hypotension, DKA/HHS
Continue to monitor
# Acute kidney injury, resolved
#CKD
unknown baseline, CKD?
no OP document review specialist
-OP nephrology at discharge
- Creatinine 2.1 x 2, stable
- Continue to monitor BMP
- Records request
# Elevated Trope rule out NSTEMI
- Patient denies chest pain
- Trop down trended
- EKG with atrial sensed ventricular paced rhythm
- Cardiology consulted
- Troponin essentially flat no need to continue
- No history of chest pain concerning for ACS
- Repeat echo
# Hypovolemic hypotension, resolved
Blood pressure low in 70s
-Continue fluids
-Continue to monitor the blood pressure
# Hypothyroidism
-Levothyroxine continued
# History of VT x 2
#CAD s/p CABG
# Coronary artery disease status post coronary artery bypass graft
# S/p ICD
-Metoprolol, aspirin, Plavix continued
- Cardiology consult
# Essential hypertension
-Patient was noted hypotensive upon arrival
-Will hold valsartan
#Hyperlipidemia
-Atorvastatin continued
DVT prophylaxis
Heparin subcu
CODE STATUS
Full code
Anticipated Discharge: Within 24 hours
Subjective/Interval History
-
Patient was seen at bedside lying comfortably in bed. He reports no issues no shortness of breath no nausea no vomiting no chest pain no fevers. Date of Service: December 13, 2024
Objective Data
-
Labs:
Laboratory Results
12/13/24
04:15
WBC 11.0 H
Hgb 13.1
Hct 37.7 L
Plt Count 179
Sodium 142
Potassium 4.1
Chloride 116 H
Carbon Dioxide 22
BUN 42 H
Creatinine 2.1 H
Glucose 226 H
Calcium 8.5
Total Bilirubin 1.3 D
AST 89 H
ALT 94 H
Alkaline Phosphatase 118
Vital Signs:
Vital Signs
Temp Pulse Resp BP Pulse Ox
97.9 F 82 16 120/76 97
12/13/24 08:00 12/13/24 08:14 12/13/24 08:00 12/13/24 08:14 12/13/24 08:00
I&O
12/12/24 12/13/24 12/14/24
06:59 06:59 06:59
Intake Total 1894 1341 / 1341 240 / 240
Output Total 400 / 400 450 / 450
Balance 1495 / 1622 891 / 891 240 / 240
Review of Systems
-
History Source: Patient
Constitutional: Reports No Symptoms; Denies Fever or Weakness
EENT: Reports No Symptoms Reported; Denies Sore Throat or Runny Nose
Respiratory: Reports No Symptoms; Denies Cough, Trouble Breathing or Wheezing
Cardiac: Reports No Symptoms; Denies Chest Pain or Palpitations
Abdomen/GI: Reports No Symptoms; Denies Abdominal Pain, Nausea, Vomiting, Diarrhea, Constipated or Bloody Stools
Genitourinary: Reports No Symptoms; Denies Dysuria
Skin: Reports No Symptoms; Denies Itching or Rash
Neuro: Denies Dizzy, Headache or Weakness
Physical Exam
-
General: Well Developed, Well Nourished, No Apparent Distress and Comfortable; Negative Fever
HEENT: Normocephalic and Atraumatic
Respiratory: Clear to Auscultation and Non Labored Respirations; Negative Wheezes or Crackles
Cardiac: Regular Rhythm and S1/S2; Negative Murmur
GI: Soft, Nontender, Nondistended and Normal Bowel Sounds
Musculoskeletal: No Clubbing and No Edema
Skin: Warm and Dry
Neuro: Awake, Alert, Oriented and AO x 3
Psych: Calm
[2024-12-13] MEDS: NOVOLOG FLEXPEN-MODERATE RESISTANCE 5 UNITS SC ×2 (12:28→17:29)
[2024-12-13 12:36] LABS: Glucose - Point of Care 293 mg/dl (70-99)
[2024-12-13 17:04] LABS: Glucose - Point of Care 256 mg/dl (70-99)
[2024-12-13] MEDS: LANTUS 0.24 UNITS SC (21:39)
[2024-12-13 21:44] LABS: Glucose - Point of Care 228 mg/dl (70-99)
[2024-12-14 03:00] VITALS: BP 112/65
[2024-12-14] MEDS: SYNTHROID 75 MCG PO (04:53)
[2024-12-14 05:43] LABS: Hematocrit 39.6 % (39.0-52.0); Hemoglobin 13.2 g/dL (13.0-18.0); Mean Corp Hgb Conc. 33.3 g/dL (33.0-37.0); Mean Corpuscular Volume 86.7 fL (80.0-94.0); Platelet Count 193 10^3/uL (130-400); Red Cell Dist. Width 13.9 % (11.5-14.5)
[2024-12-14 06:03] LABS: Blood Urea Nitrogen 38 mg/dl (9-20); Calcium 8.5 mg/dl (8.4-10.2); Carbon Dioxide 22 mmol/L (22-30); Chloride 114 mmol/L (98-107); Estimated Creatinine Clearance 27 ml/min; Glucose 149 mg/dl (70-99); Potassium 3.2 mmol/L (3.5-5.1); Sodium 142 mmol/L (135-145); eGFR 33.12
--- NOTE | 2024-12-14 07:23 | PN.DE.MGMTRT ---
Insulin Management
- -
12/14/2024: Diabetes Management Consult
79 year old male who presented with fatigue, weakness, poor appetite and increased urination. He was found to be in DKA and ARSENIO, treated with insulin gtt and transitioned to SQ Insulin.
PMH: CAD s/p CABG, VA x2 s/p ICD, Hypothyroidism, HLD, Diabetic Neuropathy, T2DM. Patient just finished a course of antibiotics and steroids for pneumonia on Saturday. Upon arrival he was noted for elevated blood sugar of 986. Was taking Lantus 26
units daily, Glipizide 5mg daily Ozempic weekly and Jardiance 25 mg daily NEUROPSYCHOLOGY MEDICAL CONSULTANT. He dose not have a glucose monitor and does not adhere to a diabetic diet. Reports h/xo hypoglycemia while taking Glipizide 5mg BOD that was reduced to once a day. A1C
19.1%, Cr 2.8-->2.0, eGFR 33.12 today, Current diabetes regime includes Lantus 26 units @ HS and low corrective insulin with meals.
Pt awake, alert, oriented, able to discuss diabetes care plan. Routinely sees Endo Dr. Veras in [facility] for diabetes care
Glucose range 190 to 293, received 1-5 units of corrective insulin. Will start AC NovoLog 8 units, cont low corrective insulin with meals.
HS glucose was 228, received 24 units of Lantus, fasting 149 V, 113 POC, will cont same Lantus dose of 24 units @ HS.
HOLD Jardiance, reassess in AM and resume if kidney function has improved. Explained to pt that he will require insulin therapy moving forward due to poor kidney function. instructed pt to HOLD Jardiance, Glipizide and Ozempic until he has been
instructed to resume them by his Endo.
Notified pt that he needs close OP followup with BMP to monitor kidney function.
Discussed with Nurse. Will cont to monitor
Pt was seen by the diabetes Nurse Educator for insulin and monitor instructions.
Diabetes History
- -
Type of Diabetes: 2 requiring insulin
Pre-Admission Diabetes Regimen
12/14/24
05:07
Creatinine 2.0 H
Lab Results
Hemoglobin A1c 19.1 % (4.0-5.9) H 12/12/24 04:19
Insulin Pump Settings
IP Diabetes Regimen
12/13/24 12/13/24 12/13/24
08:05 12:25 17:02
Glucose
POC Glucose 190 H 293 H 256 H
12/13/24 12/14/24
21:42 05:07
Glucose 149 H
POC Glucose 228 H
Meal type: Lunch
Meal type: Breakfast
Amount consumed: 100%
Amount consumed: 50%
Patient Education
[2024-12-14 07:31] VITALS: BP 95/59
[2024-12-14 08:04] LABS: Glucose - Point of Care 113 mg/dl (70-99)
[2024-12-14] MEDS: KCL 40 MEQ PO (08:26)
[2024-12-14] MEDS: TOPROL XL 50 MG PO (08:26)
[2024-12-14] MEDS: CRESTOR 40 MG PO (08:26)
[2024-12-14] MEDS: PLAVIX 75 MG PO (08:27)
[2024-12-14] MEDS: HEPARIN SC ×2 (08:27→19:45)
[2024-12-14] MEDS: LOW STRENGTH ASPIRIN 81 MG PO (08:27)
--- NOTE | 2024-12-14 09:01 | W.PN.HOSP.TC ---
Addendum entered and electronically signed by Magalys Santacruz MD, Resident 12/14/24 12:59:
#Moderate protein calorie Malnutrition
# Hypovolemic hypotension
5% weight loss in less than 1 month
Patient on Ozempic
- Encouraged p.o. intake
- Follow-up with outpatient outside sales consultant
Addendum entered and electronically signed by Raúl Kaba MD 12/14/24 11:26:
Attending�addendum:
I saw and evaluated the patient. I reviewed the resident�s note and agree with findings and plan as documented in the resident�s note.��patient seen and examined at bedside, denies any chest pain or shortness of breath, no abdominal pain, no nausea,
no vomiting, no diarrhea or constipation.
Will be discharged home today.
Physical�exam:
GENERAL : Patient is awake, alert, oriented x3
HEENT: Nonicteric sclerae, PERRLA, EOMI. Oropharynx clear. Moist mucous membranes. Conjunctivae appear well perfused.
CHEST: Chest wall is nontender.
HEART: Regular rate and rhythm without murmurs.
LUNGS: Clear to auscultation bilaterally.
ABDOMEN: Soft, positive bowel sounds, nontender, no organomegaly.
RECTAL: Deferred.
MUSCLES/EXTREMITIES: No abnormal range of motion, no swelling.SKIN: No rash, no excessive bruising, petechiae, or purpura.
NEUROLOGIC: Cranial nerves II-XII intact without motor/sensory deficit.
�
Assessment/plan:
HHNK.
Less likely to be DKA with absence of acidosis and ketonuria.
Overall blood sugar improved.
Patient offered Premeal insulin but he would like to continue only with Lantus.
Dose adjusted to 26 units in the morning.
Advised to follow-up with endocrine as outpatient.
Follow-up with cardiology as outpatient for elevated troponin.
Cleared for discharge
CODE STATUS: Full code
DVT prophylaxis: Heparin
Diet: Diabetic diet
Disposition: Discharge home today
�
Total time spent on today�s encounter was 51 minutes which included time spent in counseling the patient/family regarding diagnosis and treatment plan as listed above, goals of care, and symptom management. Case was discussed with nursing staff,
specialists, and care coordinators/case management. All labs and imaging personally reviewed by me. Remainder the time spent in detailed review of previous records, lab data, imaging, and other medical provider documentation.
Original Note:
Today's Communication/Plan
-
Dispo plan
Replete electrolytes
Assessment / Plan
Assessment / Plan
79-year-old male with PMH for diabetic neuropathy, type 2 DM uncontrolled, SC x 2 s/p ICD, CABG, hypothyroidism dyslipidemia presented to us with fatigue and weakness for past few days. Patient stated increased urination. Patient stated very poor
appetite. Patient just finished a course of antibiotics and steroids for pneumonia on 12/01. Upon arrival he was noted hypotensive for which he was requiring fluids. Patient was also noted to have elevated blood sugar in 900s with high anion gap
acidosis and negative urine ketones with positive beta hydroxybutyrate. He was noted to have elevated Troponin with benign EKG. Patient received a dose of normal saline, aspirin and insulin and admitted to the ICU. He was started on an insulin
drip and his BMP was monitored until AG closed x 2. He was transitioned to subcu insulin and a diabetic CITY DISPATCH SUPERVISOR was consulted for further management. Cardiology was consulted for his elevated troponin who were not concerned about ACS considering flat
troponin and EKG findings but got echo. Patient was also found to have high creatinine, unknown history of CKD, patient was told by outside sales consultant that he has kidney problem but follows with no clinical team lead. Creatinine stabilized during hospital
stay at 2.1. On 12/13 patient was downgraded to telemetry.
#HHNK
less likely DKA due to no urine ketones, pH7.44, uncontrolled diabetes a1c 19% gluco elevated 900
Contribution from recent steroids/ illness
finished course about 1.5 weeks ago due to pneumonia diagnosed at urgent care
A1c 19.1
B hydroxy 1.2
negative urine ketones
blood sugar elevated in 900's
blood ketones B hydroxy elevated
AG closed x [address] Rosangela Veras at [facility] endocrinology
Dr. Jada Hess at [facility] embedded software design engineer
Downgraded telemetry 12/13
-DM CITY DISPATCH SUPERVISOR consulted
- Lantus 26 units at discharge
- NPH 12 units
-Moderate insulin sliding scale
- Afternoon BMP within normal limits
# Leukocytosis resolved
#recent pneumonia
Steroid-induced versus HHNK vs resolving pneumonia
- WBCs 10.6, patient is afebrile, downtrending
- Continue to monitor
- refused the chest x ray to check the resolution of pneumonia
#Electrolyte abnormality
#Hypokalemia
# Pseudohyponatremia in setting of hyperglycemia, resolved
-monitor BMP
- Replete as needed
#Transaminitis resolving
AST 89-->52
ALT 94-->79
T. bili 1.3-->1.4
Alk phos 118-->116
Likely in the setting of hypotension, DKA/HHS
Continue to monitor
# Acute kidney injury, resolved
#CKD
unknown baseline, CKD?
no OP clinical team lead
-OP nephrology at discharge
- Creatinine 2.0, stable
- Continue to monitor BMP
- Records request
# Elevated Trope rule out NSTEMI
- Patient denies chest pain
- Trop down trended
- EKG with atrial sensed ventricular paced rhythm
- Cardiology consulted
- Troponin essentially flat no need to continue
- No history of chest pain concerning for ACS
- Repeat echo OP
# Hypovolemic hypotension, resolved
-Continue fluids
-Continue to monitor the blood pressure
# Hypothyroidism
-Levothyroxine continued
# History of SC x 2
#CAD s/p CABG
# Coronary artery disease status post coronary artery bypass graft
# S/p ICD
-Metoprolol, aspirin, Plavix continued
- Cardiology consult
# Essential hypertension
-Patient was noted hypotensive upon arrival
-Will hold valsartan
#Hyperlipidemia
-Atorvastatin continued
DVT prophylaxis
Heparin subcu
CODE STATUS
Full code
Anticipated Discharge: Today
Subjective/Interval History
-
Patient reports doing well, with no issues. He reports no chest pain shortness of breath nausea vomiting abdominal pain fevers chills. He has outpatient follow-up with his embedded software design engineer in 2 weeks, encouraged him to get an outpatient clinical team lead.
Date of Service: December 14, 2024
Objective Data
-
Labs:
Laboratory Results
12/14/24
05:07
WBC 10.6
Hgb 13.2
Hct 39.6
Plt Count 193
Sodium 142
Potassium 3.2 L
Chloride 114 H
Carbon Dioxide 22
BUN 38 H
Creatinine 2.0 H
Glucose 149 H
Calcium 8.5
Vital Signs:
Vital Signs
Temp Pulse Resp BP Pulse Ox
97.8 F 66 16 95/59 99
12/14/24 07:31 12/14/24 07:31 12/14/24 07:31 12/14/24 07:31 12/14/24 07:31
I&O
12/13/24 12/14/24 12/15/24
06:59 06:59 06:59
Intake Total 1341 / 1341 720 / 720
Output Total 450 / 450
Balance 891 / 891 720 / 720
Review of Systems
-
History Source: Patient
Constitutional: Denies Fever or Chills
EENT: Denies Sore Throat or Runny Nose
Respiratory: Denies Cough or Trouble Breathing
Cardiac: Denies Chest Pain or Palpitations
Abdomen/GI: Denies Abdominal Pain, Nausea, Vomiting, Diarrhea or Constipated
Genitourinary: Denies Dysuria
Musculoskeletal: Denies Edema
Skin: Denies Itching or Rash
Neuro: Denies Dizzy or Headache
Physical Exam
-
General: Well Developed, Well Nourished, No Apparent Distress and Comfortable; Negative Fever
HEENT: Normocephalic and Atraumatic
Respiratory: Clear to Auscultation and Non Labored Respirations; Negative Wheezes or Crackles
Cardiac: Regular Rhythm and S1/S2; Negative Murmur
GI: Soft, Nontender, Nondistended and Normal Bowel Sounds
Musculoskeletal: No Clubbing and No Edema
Skin: Warm and Dry; Negative Rash
Neuro: Awake, Alert and Oriented
[2024-12-14 09:39] LABS: ALT (SGPT) 79 U/L (0-50); AST (SGOT) 52 U/L (17-59); Albumin 2.9 g/dl (3.5-5.0); Alkaline Phosphatase 116 U/L (38-126); Total Protein 5.4 g/dl (6.3-8.2)
[2024-12-14] MEDS: NOVOLOG FLEXPEN 8 UNITS SC (09:44)
[2024-12-14] MEDS: NOVOLOG FLEXPEN-MODERATE RESISTANCE SC (10:13)
[2024-12-14] MEDS: KCL 20 MEQ PO (10:20)
--- NOTE | 2024-12-14 10:25 | PTCARENOTE ---
12/14/2024 DIABETES EDUCATION CONSULT
I met with patient to review diabetes management. His BS was in the 900's upon admission, secondary to steroid use for 2nd diagnosis of PNA.
He also stated he stopped taking Lantus when he was feeling symptomatic with PNA. I provided education that he should continue his medications even during illness as the illness will raise his blood sugar.
I educated on physiology of T2D, organ damage, managing with medications, monitoring BG, nutrition, activity. I reinforced signs of hyperglycemia, hypoglycemia and hypoglycemia protocol; BS parameters and recommended HbA1c goals, glucometer and CGM
instructions, glucose tracker, medic alert bracelet and outpatient DSME program. Written material provided.
I provided patient with a [employer] glucometer sample kit. Provided verbal instructions on proper blood sugar testing technique, he declined demonstration stating he knows how to use. He has been checking BS with a watch, I expressed
concern over the accuracy and to double check with a fingerstick. He states his BS has been 80-120 mg/dL as indicated on his smart watch. I provided education on a CGM, he will discuss with his sr. strategic sourcing manager (Rosangela Veras at [facility]).
He also states he has been on 10 mg Ozempic for 2 years.
Mr. Crespo declined a demonstration on insulin injection technique, as he is currently prescribed Lantus. I verbally reviewed insulin injection technique. He was not priming the pen nor rotating sides of his abdomen for injection. I provided
education on insulin administration and expressed the importance of rotating injection sites. I requested additional glucose testing supplies ordered upon discharge.
I reviewed with Mr. Crespo, that while inpatient he is prescribed Aspart prior to meals and educated on the mechanism of action and proper timing before meals. 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
blood sugar nor inject mealtime insulin. I still reviewed
educated and demonstrated on insulin injection technique, timing, and storage.
Encouraged patient to follow up with his PCP and sr. strategic sourcing manager for post d/c appointment and to monitor medication and blood glucose levels. Patient verbalized understanding.
[2024-12-14 11:11] VITALS: BP 88/45
[2024-12-14 11:38] LABS: Glucose - Point of Care 105 mg/dl (70-99)
--- NOTE | 2024-12-14 12:04 | PN.CDI ---
CDI
- -
CDI:
Physician Documentation Request
Admit Date: 12/11/24 18:04
Dear Doctor,
Please review the following and provide your response in the progress notes.
Clinical Indicators:
Pt admitted for HHNK and ARSENIO.
12/13 Registered Dietitian Note: 'Chart reviewed due to consult pt with weight loss....Pt reports poor appetite for 'months' and 7 lb weight loss in past two weeks....
CBW: 143 lbs 8.335oz BMI 20.6 normal range (12/13), compared to UBW of 150 lbs pt with a reported 5% weight loss in < 1 month signficant.
With < 75% estimated needs in > 1 month and 5% weight loss in 1 month pt meets AND/ASPEN criteria for moderate protein calorie malnutrition of chronic illness.
Encouraged increased intakes of meals as tolerated.
RD to continue to monitor po intakes, if do not improve consider an nutritional supplement. '
Based on the above information and your assessment, which of the following most accurately represents the patient's nutritional status?
Moderate protein calorie Malnutrition
Other (please specify)
[place] Criteria (ACP Hospitalist 2017)
2 or more criteria must be present for either
non severe or severe malnutrition
Note that the criteria differs related to the
presence of an acute or chronic illness
Chronic Illness
Energy Intake Non Severe: <75% for >1 month
Severe: <75% for >1 month
Weight Loss Non Severe: 5% over 1 month
7.5% over 3 months
10% over 6 months
20% over 1 year
Severe: >5% over 1 month
>7.5% over 3 months
>10% over 6 months
>20% over 1 year
Body Fat Non Severe: Mild Loss
Severe: Severe Loss
Muscle Mass Non Severe: Mild Loss
Severe: Severe Loss
Fluid Accumulation Non Severe: Mild Accumulation
Severe: Moderate to severe
accumulation
Reduced Laborer Prestressed Concrete Strength Non Severe: N/A
Severe: Measurably reduced
Additional criteria that can be used to Determine if Mild or Moderate Malnutrition (Merck Manual 2018)
Use of terms such as suspected, likely, concern for, or probable (associated with a specific diagnosis that is being evaluated, monitored, or treated as if it exists) are acceptable and can be coded in the inpatient setting, when documented at the
time of discharge.
Thank you,
Shy Bey RN, BSN
CDI Specialist
[employer]
Please use your independent medical judgment in providing your response.
[2024-12-14] MEDS: NOVOLOG FLEXPEN SC (12:40)
--- NOTE | 2024-12-14 12:41 | W.DCSUMMARY ---
Addendum entered and electronically signed by Raúl Kaba MD 12/15/24 11:13:
Patient supposed to be discharged yesterday but it was late and he had no ride so he stayed till today.
Discharge Data
Date of Admission: 12/11/24
Date of Discharge: 12/15/24
Addendum entered and electronically signed by Raúl Kaba MD 12/14/24 13:51:
Attending�addendum:
I saw and evaluated the patient. I reviewed the resident�s note and agree with findings and plan as documented in the resident�s note.��patient seen and examined at bedside, denies any chest pain or shortness of breath, no abdominal pain, no nausea,
no vomiting, no diarrhea or constipation.
Will be discharged home today.
Physical�exam:
GENERAL : Patient is awake, alert, oriented x3
HEENT: Nonicteric sclerae, PERRLA, EOMI. Oropharynx clear. Moist mucous membranes. Conjunctivae appear well perfused.
CHEST: Chest wall is nontender.
HEART: Regular rate and rhythm without murmurs.
LUNGS: Clear to auscultation bilaterally.
ABDOMEN: Soft, positive bowel sounds, nontender, no organomegaly.
RECTAL: Deferred.
MUSCLES/EXTREMITIES: No abnormal range of motion, no swelling.SKIN: No rash, no excessive bruising, petechiae, or purpura.
NEUROLOGIC: Cranial nerves II-XII intact without motor/sensory deficit.
�
Assessment/plan:
HHNK.
Less likely to be DKA with absence of acidosis and ketonuria.
Overall blood sugar improved.
Patient offered Premeal insulin but he would like to continue only with Lantus.
Dose adjusted to 26 units in the morning.
Advised to follow-up with endocrine as outpatient.
Follow-up with cardiology as outpatient for elevated troponin.
Cleared for discharge
Moderate protein calorie Malnutrition
CODE STATUS: Full code
DVT prophylaxis: Heparin
Diet: Diabetic diet
Disposition: Discharge home today
�
Total time spent on today�s encounter was 40 minutes which included time spent in counseling the patient/family regarding diagnosis and treatment plan as listed above, goals of care, and symptom management. Case was discussed with nursing staff,
specialists, and care coordinators/case management. All labs and imaging personally reviewed by me. Remainder the time spent in detailed review of previous records, lab data, imaging, and other medical provider documentation.
Original Note:
Documented by User: Magalys Santacruz MD, Resident 12/14/24 12:55
Discharge Summary
Discharge Data
Date of Admission: 12/11/24
Date of Discharge: 12/14/24
-
Pending Results: No
Hospital Course
Discharging Physician :
Dr. Kaba
Dr. Santacruz
Disposition :
Home
Primary care physician :
Principal Discharge diagnosis :
HHNK
Chronic Discharge diagnosis :
Type 2 diabetes
Hypothyroidism
Essential hypertension
Hyperlipidemia
Chronic kidney disease
Diabetic neuropathy
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
CABG
Hospital Course :
Mr. Crespo is a 79-year-old male with PMH for diabetic neuropathy, type 2 DM uncontrolled, [place] x 2 s/p ICD, CABG, hypothyroidism, dyslipidemia presented to us with fatigue and weakness for past few days. Patient stated increased urination and very
poor appetite. Patient just finished a course of antibiotics and steroids for pneumonia on 12/01. Upon arrival he was noted hypotensive for which he was requiring IV fluids. Patient was also noted to have elevated blood sugar in 900s with negative
urine ketones with positive beta hydroxybutyrate. He was noted to have elevated troponin with benign EKG. Patient received normal saline, aspirin and insulin and admitted to the ICU for HHNK. He was started on an insulin drip and his BMP was
monitored until BG less than 250. He was transitioned to subcu insulin and a diabetic ENROLLMENT SERVICES VICE PRESIDENT was consulted for further management. A1c was noted to be 19%. Cardiology was consulted for his elevated troponin who were not concerned about ACS considering
flat troponin and EKG findings but recommend patient follow with his outpatient loom doffer for further management. Patient was also found to have high creatinine, unknown history of CKD although patient was told by hat presser that he has
kidney problem but follows with no shot core drill operator helper. Creatinine stabilized during hospital stay at 2.0. On 12/13 patient was downgraded to telemetry from ICU and started oral diet. He was noted to be hypokalemic which was repleted and patient
tolerated oral diet well and his insulin was increased to Lantus 26 units. He was noted to have mild transaminitis which normalized on 12/14. He was encouraged to follow-up with outpatient hat presser for tighter glucose control and was
afebrile and vital signs were stable for discharge.
Important imaging findings :
12/11/24 EKG:
Atrial-sensed ventricular-paced rhythm with prolonged AV conduction
ABNORMAL ECG
NO PREVIOUS ECGS AVAILABLE
Procedure findings :
Discharge Plan
-
Patient Disposition: Home (Routine Discharge)
Discharge Diagnosis/Procedures: Hyperosmolar hyperglycemic nonketotic syndrome
Condition: Good
Diet: Diabetic, Carb Controlled
Activity: As tolerated
Driving Restrictions: As prior to admission
Bathing Restrictions: None
Referrals:
Curtis Hyman MD [Active, Nephrology] - in one week
NONE,* [Family Provider, Internal Medicine]
Prescriptions:
New
aspirin 81 mg Tablet,Chewable
81 mg PO DAILY Qty: 30 0RF
Continued
metoprolol succinate 50 mg tablet extended release 24 hr
50 mg PO DAILY
glipizide 5 mg tablet extended release 24hr
5 mg PO DAILY
clopidogrel 75 mg tablet
75 mg PO DAILY
levothyroxine 75 mcg tablet
75 mcg PO DAILY
valsartan-hydrochlorothiazide 80-12.5 mg tablet
1 tab PO DAILY
rosuvastatin 40 mg tablet
40 mg PO DAILY
insulin glargine [Lantus Solostar U-100 Insulin] 100 unit/mL (3 mL) insulin pen
26 unit SC DAILY
Jardiance 10 mg tablet
10 mg PO DAILY
Discharge Date and Time
Print Language: WOLOF

Documented by User: Raúl Kaba MD 12/14/24 13:51
Discharge Summary
Discharge Data
Date of Admission: 12/11/24
Date of Discharge: 12/14/24
Discharge Plan
-
Patient Disposition: Home (Routine Discharge)
Discharge Diagnosis/Procedures: Hyperosmolar hyperglycemic nonketotic syndrome
Condition: Good
Diet: Diabetic, Carb Controlled
Activity: As tolerated
Driving Restrictions: As prior to admission
Bathing Restrictions: None
Referrals:
Curtis Hyman MD [Active, Nephrology] - in one week
NONE,* [Family Provider, Internal Medicine]
Prescriptions:
New
aspirin 81 mg Tablet,Chewable
81 mg PO DAILY Qty: 30 0RF
Continued
metoprolol succinate 50 mg tablet extended release 24 hr
50 mg PO DAILY
glipizide 5 mg tablet extended release 24hr
5 mg PO DAILY
clopidogrel 75 mg tablet
75 mg PO DAILY
levothyroxine 75 mcg tablet
75 mcg PO DAILY
valsartan-hydrochlorothiazide 80-12.5 mg tablet
1 tab PO DAILY
rosuvastatin 40 mg tablet
40 mg PO DAILY
insulin glargine [Lantus Solostar U-100 Insulin] 100 unit/mL (3 mL) insulin pen
26 unit SC DAILY
Jardiance 10 mg tablet
10 mg PO DAILY
Discharge Date and Time
Print Language: WOLOF
[2024-12-14] MEDS: NOVOLOG FLEXPEN 6 UNITS SC (12:52)
[2024-12-14 15:00] VITALS: BP 93/51
--- NOTE | 2024-12-14 16:34 | PTCARENOTE ---
12/14/2024 DIABETES EDUCATION CONSULT
I placed Robert 3+ CGM sensor on patient per his request. I also assisted him with downloading the mark, informed him this will take 60 minutes to warm up and results are incorrect in the first 24 hours. Will review again on 12/15/2024.
[2024-12-14 17:12] LABS: Glucose - Point of Care 90 mg/dl (70-99)
[2024-12-14] MEDS: NOVOLOG FLEXPEN 5 UNITS SC (18:19)
[2024-12-14 19:23] VITALS: BP 93/51
[2024-12-14 21:16] LABS: Glucose - Point of Care 211 mg/dl (70-99)
[2024-12-14] MEDS: LANTUS 0.24 UNITS SC (22:03)
[2024-12-14 22:56] VITALS: BP 96/43
[2024-12-15 03:02] VITALS: BP 106/59
[2024-12-15] MEDS: SYNTHROID 75 MCG PO (06:09)
[2024-12-15 06:36] LABS: Hematocrit 37.0 % (39.0-52.0); Hemoglobin 13.1 g/dL (13.0-18.0); Mean Corp Hgb Conc. 35.4 g/dL (33.0-37.0); Mean Corpuscular Volume 83.0 fL (80.0-94.0); Platelet Count 207 10^3/uL (130-400); Red Cell Dist. Width 13.7 % (11.5-14.5)
[2024-12-15 07:17] LABS: Blood Urea Nitrogen 38 mg/dl (9-20); Calcium 8.5 mg/dl (8.4-10.2); Carbon Dioxide 20 mmol/L (22-30); Chloride 117 mmol/L (98-107); Estimated Creatinine Clearance 29 ml/min; Glucose 125 mg/dl (70-99); Potassium 3.3 mmol/L (3.5-5.1); Sodium 140 mmol/L (135-145); eGFR 35.22
[2024-12-15 07:29] VITALS: BP 93/59
[2024-12-15 07:53] LABS: Glucose - Point of Care 112 mg/dl (70-99)
--- NOTE | 2024-12-15 08:25 | PN.DE.MGMTRT ---
Insulin Management
- -
12/15/2024: Diabetes Management Consult Follow up
Patient admitted 12/11 with fatigue, weakness, poor appetite and increased urination, glucose 986. He was found to be in DKA and ARSENIO, treated with insulin gtt and transitioned to SQ Insulin.
PMH: CAD s/p CABG, [place] x2 s/p ICD, Hypothyroidism, HLD, Diabetic Neuropathy, T2DM. Patient just finished a course of antibiotics and steroids for pneumonia on Saturday. Was taking Lantus 26 units daily, Glipizide 5mg daily Ozempic weekly and
Jardiance 25 mg daily FIREFIGHTING EQUIPMENT SPECIALIST. He dose not have a glucose monitor and does not adhere to a diabetic diet. Reports h/x of hypoglycemia while taking Glipizide 5mg BID that was reduced to once a day. A1C 19.1%, Cr 2.8-->1.9, eGFR 35.22 today, Current
diabetes regime includes Lantus 26 units @ HS and low corrective insulin with meals.
Pt awake, alert, oriented, able to discuss diabetes care plan. Routinely sees Endo Dr. Veras in [place] for diabetes care
12/14 Glucose range 90 to 211. AC NovoLog 4 units with low corrective insulin with meals. Received 24 units lantus @ HS.
12/15 Fasting glucose 112, will cont same Lantus dose of 24 units @ HS. AC novolog reduced to 4 units. Patient for discharge today, refused ac novolog wants to resume oral medication.
Discussed with nurse.
Pt was seen by the diabetes Nurse Educator for insulin and monitor instructions.
Diabetes History
- -
Type of Diabetes: 2 requiring insulin
Pre-Admission Diabetes Regimen
12/14/24 12/15/24
05:07 05:17
Creatinine 2.0 H 1.9 H
Lab Results
Hemoglobin A1c 19.1 % (4.0-5.9) H 12/12/24 04:19
Insulin Pump Settings
IP Diabetes Regimen
12/14/24 12/14/24 12/14/24
05:07 11:37 17:11
Glucose 149 H
POC Glucose 105 H 90
12/14/24 12/15/24 12/15/24
21:15 05:17 07:51
Glucose 125 H
POC Glucose 211 H 112 H
Meal type: Dinner
Meal type: Lunch
Meal type: Breakfast
Amount consumed: 90%
Amount consumed: 90%
Amount consumed: 80%
Patient Education
[2024-12-15] MEDS: HEPARIN 5000 UNITS SC (08:32)
[2024-12-15] MEDS: KCL 40 MEQ PO (08:35)
[2024-12-15] MEDS: PLAVIX 75 MG PO (08:35)
[2024-12-15] MEDS: LOW STRENGTH ASPIRIN 81 MG PO (08:36)
[2024-12-15] MEDS: TOPROL XL 50 MG PO (08:36)
[2024-12-15] MEDS: CRESTOR 40 MG PO (08:36)
[2024-12-15] MEDS: NOVOLOG FLEXPEN 4 UNITS SC (08:41)
--- NOTE | 2024-12-15 09:12 | W.PN.HOSP.TC ---
Addendum entered and electronically signed by Raúl Kaba MD 12/15/24 11:12:
Attending�addendum:
I saw and evaluated the patient. I reviewed the resident�s note and agree with findings and plan as documented in the resident�s note.��patient seen and examined at bedside, denies any chest pain or shortness of breath, no abdominal pain, no nausea,
no vomiting, no diarrhea or constipation.
Will be discharged home today.
Physical�exam:
GENERAL : Patient is awake, alert, oriented x3
HEENT: Nonicteric sclerae, PERRLA, EOMI. Oropharynx clear. Moist mucous membranes. Conjunctivae appear well perfused.
CHEST: Chest wall is nontender.
HEART: Regular rate and rhythm without murmurs.
LUNGS: Clear to auscultation bilaterally.
ABDOMEN: Soft, positive bowel sounds, nontender, no organomegaly.
RECTAL: Deferred.
MUSCLES/EXTREMITIES: No abnormal range of motion, no swelling.SKIN: No rash, no excessive bruising, petechiae, or purpura.
NEUROLOGIC: Cranial nerves II-XII intact without motor/sensory deficit.
�
Assessment/plan:
HHNK.
Less likely to be DKA with absence of acidosis and ketonuria.
Overall blood sugar improved.
Patient offered Premeal insulin but he would like to continue only with Lantus.
Dose adjusted to 26 units in the morning.
Advised to follow-up with endocrine as outpatient.
Follow-up with cardiology as outpatient for elevated troponin.
Cleared for discharge
CODE STATUS: Full code
DVT prophylaxis: Heparin
Diet: Diabetic diet
Disposition: Discharge home today
�
Total time spent on today�s encounter was 51 minutes which included time spent in counseling the patient/family regarding diagnosis and treatment plan as listed above, goals of care, and symptom management. Case was discussed with nursing staff,
specialists, and care coordinators/case management. All labs and imaging personally reviewed by me. Remainder the time spent in detailed review of previous records, lab data, imaging, and other medical provider documentation
Original Note:
Today's Communication/Plan
-
Discharge today
Assessment / Plan
Assessment / Plan
79-year-old male with PMH for diabetic neuropathy, type 2 DM uncontrolled, [place] x 2 s/p ICD, CABG, hypothyroidism dyslipidemia presented to us with fatigue and weakness for past few days. Patient stated increased urination. Patient stated very poor
appetite. Patient just finished a course of antibiotics and steroids for pneumonia on 12/01. Upon arrival he was noted hypotensive for which he was requiring fluids. Patient was also noted to have elevated blood sugar in 900s with high anion gap
acidosis and negative urine ketones with positive beta hydroxybutyrate. He was noted to have elevated Troponin with benign EKG. Patient received a dose of normal saline, aspirin and insulin and admitted to the ICU. He was started on an insulin
drip and his BMP was monitored until AG closed x 2. He was transitioned to subcu insulin and a diabetic PEDIATRIC CRITICAL CARE NURSE was consulted for further management. Cardiology was consulted for his elevated troponin who were not concerned about ACS considering flat
troponin and EKG findings but got echo. Patient was also found to have high creatinine, unknown history of CKD, patient was told by equipment installation professional that he has kidney problem but follows with no tile layer. Creatinine stabilized during hospital
stay at 2.1. On 12/13 patient was downgraded to telemetry.
#HHNK
#Type 2 diabetes, insulin-dependent
less likely DKA due to no urine ketones, pH7.44, uncontrolled diabetes a1c 19% gluco elevated 900
Contribution from recent steroids/ illness
finished course about 1.5 weeks ago due to pneumonia diagnosed at urgent care
A1c 19.1
B hydroxy 1.2
negative urine ketones
blood sugar elevated in 900's
blood ketones B hydroxy elevated
AG closed x [address] Rosangela Veras at [facility] endocrinology
Dr. Jada Hess at [facility] silver chaser
Downgraded telemetry 12/13
-DM PEDIATRIC CRITICAL CARE NURSE consulted
-Patient with new chula 3 close CGM
- Lantus 26 units at discharge
-Patient refuses mealtime insulin
-Moderate insulin sliding scale
- Afternoon BMP within normal limits
# Leukocytosis resolved
#recent pneumonia
Steroid-induced versus HHNK vs resolving pneumonia
- WBCs 10.6, patient is afebrile, downtrending
- Continue to monitor
- refused the chest x ray to check the resolution of pneumonia
#Electrolyte abnormality
#Hypokalemia
# Pseudohyponatremia in setting of hyperglycemia, resolved
-monitor BMP
- Replete as needed
#Transaminitis resolving
AST 89-->52
ALT 94-->79
T. bili 1.3-->1.4
Alk phos 118-->116
Likely in the setting of hypotension, DKA/HHS
Continue to monitor
# Acute kidney injury, resolved
#CKD
unknown baseline, CKD?
no OP tile layer
-OP nephrology at discharge
- Creatinine 1.9, stable
- Continue to monitor BMP
- Records request
# Elevated Trope rule out NSTEMI
- Patient denies chest pain
- Trop down trended
- EKG with atrial sensed ventricular paced rhythm
- Cardiology consulted
- Troponin essentially flat no need to continue
- No history of chest pain concerning for ACS
- Repeat echo OP
#Moderate protein calorie Malnutrition?
# Hypovolemic hypotension
5% weight loss in less than 1 month
Patient on Ozempic
Patient reports decreased appetite and p.o. intake
- Encouraged p.o. intake
- Follow-up with outpatient equipment installation professional
# Hypothyroidism
-Levothyroxine continued
# History of [place] x 2
#CAD s/p CABG
# Coronary artery disease status post coronary artery bypass graft
# S/p ICD
-Metoprolol, aspirin, Plavix continued
- Cardiology consult
# Essential hypertension
-Patient was noted hypotensive upon arrival
- Resume home meds at discharge valsartan with parameters
- Follow-up outpatient silver chaser for low BPs
#Hyperlipidemia
-Atorvastatin continued
DVT prophylaxis
Heparin subcu
CODE STATUS
Full code
Anticipated Discharge: Today
Subjective/Interval History
-
Patient reported doing well, no issues overnight, no shortness of breath fevers chills nausea vomiting. date of Service: December 15, 2024
Objective Data
-
Labs:
Laboratory Results
12/15/24
05:17
WBC 11.6 H
Hgb 13.1
Hct 37.0 L
Plt Count 207
Sodium 140
Potassium 3.3 L
Chloride 117 H
Carbon Dioxide 20 L
BUN 38 H
Creatinine 1.9 H
Glucose 125 H
Calcium 8.5
Vital Signs:
Vital Signs
Temp Pulse Resp BP Pulse Ox
97.5 F 69 16 101/60 99
12/15/24 07:29 12/15/24 08:36 12/15/24 07:29 12/15/24 08:36 12/15/24 08:44
I&O
12/14/24 12/15/24 12/16/24
06:59 06:59 06:59
Intake Total 720 / 720 1740 / 1740
Balance 720 / 720 1740 / 1740
Review of Systems
-
History Source: Patient
Constitutional: Denies Fever or Chills
EENT: Denies Sore Throat or Runny Nose
Respiratory: Denies Cough, Trouble Breathing or Wheezing
Cardiac: Denies Chest Pain or Palpitations
Abdomen/GI: Denies Abdominal Pain, Nausea, Vomiting, Diarrhea or Constipated
Genitourinary: Denies Dysuria
Skin: Denies Itching or Rash
Neuro: Denies Dizzy or Headache
Physical Exam
-
General: Well Developed, Well Nourished, No Apparent Distress and Comfortable; Negative Fever
HEENT: Normocephalic and Atraumatic
Respiratory: Clear to Auscultation and Non Labored Respirations; Negative Wheezes or Crackles
Cardiac: Regular Rhythm and S1/S2; Negative Murmur
GI: Soft, Nontender, Nondistended and Normal Bowel Sounds
Musculoskeletal: No Clubbing and No Edema
Skin: Warm and Dry
Neuro: Awake, Alert and Oriented
--- NOTE | 2024-12-15 09:58 | CM ---
Pt is cleared for discharge to home today. No needs identified. IMM provided, signed and placed in chart.
Plan: Discharge to home with no identified needs. will transport home.
--- NOTE | 2024-12-15 10:59 | PTCARENOTE ---
12/15/2024 DIABETES EDUCATION CONSULTATION
I visited patient, ready to discharge. Reviewed functionality of [employer] CGM mark, reports, alarms, and ability to add notes for food, exercise and insulin dosing. Patient will outreach office with any questions.
== END 2024-12-15 11:31 | disposition home or self-care (01) | DRG 638 ==
LOC: 3 WEST ACU 18:04
PROVIDERS: Emergency Medicine; Nurse Practitioner Primary Care; Registered Nurse; Student in an Organized Health Care Education/Training Program; ADMITTING PHYSICIAN Internal Medicine; ATTENDING PHYSICIAN General Practice; CONSULT PHYSICIAN Internal Medicine Cardiovascular Disease; CONSULT PHYSICIAN Internal Medicine Critical Care Medicine; EMERGENCY PHYSICIAN Student in an Organized Health Care Education/Training Program
DX: E11.00 Type 2 diabetes mellitus with hyperosmolarity without nonketotic hyperglycemic-hyperosmolar coma (NKHHC) (principal); E44.0 Moderate protein-calorie malnutrition; N17.9 Acute kidney failure, unspecified; R17 Unspecified jaundice; E03.9 Hypothyroidism, unspecified; I12.9 Hypertensive chronic kidney disease with stage 1 through stage 4 chronic kidney disease, or unspecified chronic kidney disease; N18.9 Chronic kidney disease, unspecified; I25.2 Old myocardial infarction; Z95.1 Presence of aortocoronary bypass graft; Z95.810 Presence of automatic (implantable) cardiac defibrillator; E11.42 Type 2 diabetes mellitus with diabetic polyneuropathy; Z88.2 Allergy status to sulfonamides; E11.22 Type 2 diabetes mellitus with diabetic chronic kidney disease; T38.0X5A Adverse effect of glucocorticoids and synthetic analogues, initial encounter; Z87.01 Personal history of pneumonia (recurrent); E86.1 Hypovolemia; E87.6 Hypokalemia; Z68.20 Body mass index [BMI] 20.0-20.9, adult; E78.00 Pure hypercholesterolemia, unspecified; E86.0 Dehydration; I25.10 Atherosclerotic heart disease of native coronary artery without angina pectoris; Z79.02 Long term (current) use of antithrombotics/antiplatelets; Z79.4 Long term (current) use of insulin; Z79.84 Long term (current) use of oral hypoglycemic drugs; Z79.890 Hormone replacement therapy; Z79.899 Other long term (current) drug therapy; D72.829 Elevated white blood cell count, unspecified
CPT/HCPCS: 80048; 80053; 81003; 81015; 82010; 82248; 82962; 83036; 83735; 83930; 84100; 84443; 84484; 85025; 85027; 85610; 85730; 93005; 96361; 96365; 97163; 99291; J3480